=== PATIENT | male | born 1950 | race Caucasian/White ===

== ENCOUNTER 2019-04-14 10:43 | Emergency (ER) | payer MEDICARE, OTHER ==
[~2019-04-14] VITALS: Ht 175.2 cm; Wt 97.2 kg
--- NOTE | 2019-04-14 11:08 | ED GI ---
General Chief Complaint: Abdominal/GI Problems Stated Complaint: LT ABD PAIN Source of Information: Patient History of Present Illness Date Seen by Provider: Apr 14, 2019 Time Seen by Provider: 11:07 Initial Comments The patient is a 69-year-old white male who reports that he had developed left- sided abdominal pain earlier this morning. He saw his physician at [facility] and was sent here for a CT scan. He reports that yesterday he had a grumbly tummy and 4 or more loose but not watery stools. The additional stooling has not been noted today. There is been no blood in his stools. He has had no previous belly surgery. He was said to have had a temperature of 101+ at [facility] but only 100 on arrival here. Had not taken any antipyretics. Timing/Duration: 4-6 Hours Severity/Quality: Mild, Moderate Allergies and Home Medications Allergies Coded Allergies: No Known Drug Allergies (Unverified , 04/14/19) Patient Home Medication List Home Medication List Reviewed: Yes Review of Systems Review of Systems Constitutional: see HPI EENTM: No Symptoms Reported Respiratory: No Symptoms Reported Cardiovascular: No Symptoms Reported Gastrointestinal: See HPI Genitourinary: No Symptoms Reported Musculoskeletal: no symptoms reported Skin: no symptoms reported Psychiatric/Neurological: No Symptoms Reported Endocrine: No Symptoms Reported Hematologic/Lymphatic: No Symptoms Reported Past Lvheuwu-Bgsfnq-Uesbod Hx Patient Social History Alcohol Use: Denies Use Recreational Drug Use: No Smoking Status: Never a Smoker 2nd Hand Smoke Exposure: No Recent Hopitalizations: No Physical Abuse: No Sexual Abuse: No Mistreated: No Fear: No Seasonal Allergies Seasonal Allergies: No Past Medical History Surgeries: No Respiratory: No Cardiac: Yes High Cholesterol, Hypertension Neurological: No Genitourinary: No Gastrointestinal: No Musculoskeletal: No Endocrine: No HEENT: No Cancer: No Psychosocial: Yes Anxiety Integumentary: No Blood Disorders: No Physical Exam Vital Signs Vital Signs - First Documented 04/14/19 10:45 Temp 38.2 Pulse 86 Resp 22 B/P (MAP) 151/72 (98) Pulse Ox 96 O2 Delivery Room Air Capillary Refill : Height/Weight/BMI Height: '" Weight: lbs. oz. kg; BMI Method: General Appearance: mild distress HEENT: normal ENT inspection Neck: full range of motion Respiratory: chest non-tender, lungs clear, normal breath sounds, no respiratory distress, no accessory muscle use Cardiovascular: normal peripheral pulses, regular rate, rhythm, no edema, no gallop, no JVD, no murmur Gastrointestinal: other (pain to palpation from the left lower costal margin to the pelvis. 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, no motor/sensory deficits, alert, normal mood/affect, oriented x 3 Skin: normal color, warm/dry Lymphatic: no adenopathy Focused Exam Lactate Level 04/14/19 11:25: Lactic Acid Level 1.48 Lactic Acid Level Laboratory Tests Test 04/14/19 11:25 Lactic Acid Level 1.48 MMOL/L (0.50-2.00) Progress/Results/Core Measures Results/Orders Lab Results Laboratory Tests Test 04/14/19 10:54 04/14/19 11:25 04/14/19 13:00 Range/Units White Blood Count 10.8 4.3-11.0 10^3/uL Red Blood Count 4.90 4.35-5.85 10^6/uL Hemoglobin 14.9 13.3-17.7 G/DL Hematocrit 46 40-54 % Mean Corpuscular Volume 94 80-99 FL Mean Corpuscular Hemoglobin 30 25-34 PG Mean Corpuscular Hemoglobin Concent 33 32-36 G/DL Red Cell Distribution Width 12.9 10.0-14.5 % Platelet Count 159 130-400 10^3/uL Mean Platelet Volume 11.1 H 7.4-10.4 FL Neutrophils (%) (Auto) 81 H 42-75 % Lymphocytes (%) (Auto) 11 L 12-44 % Monocytes (%) (Auto) 7 0-12 % Eosinophils (%) (Auto) 0 0-10 % Basophils (%) (Auto) 0 0-10 % Neutrophils # (Auto) 8.8 H 1.8-7.8 X 10^3 Lymphocytes # (Auto) 1.2 1.0-4.0 X 10^3 Monocytes # (Auto) 0.7 0.0-1.0 X 10^3 Eosinophils # (Auto) 0.0 0.0-0.3 10^3/uL Basophils # (Auto) 0.0 0.0-0.1 10^3/uL Sodium Level 137 135-145 MMOL/L Potassium Level 4.4 3.6-5.0 MMOL/L Chloride Level 96 L 98-107 MMOL/L Carbon Dioxide Level 27 21-32 MMOL/L Anion Gap 14 5-14 MMOL/L Blood Urea Nitrogen 11 7-18 MG/DL Creatinine 1.01 0.60-1.30 MG/DL Estimat Glomerular Filtration Rate > 60 BUN/Creatinine Ratio 11 Glucose Level 117 H 70-105 MG/DL Calcium Level 9.2 8.5-10.1 MG/DL Corrected Calcium 9.0 8.5-10.1 MG/DL Total Bilirubin 0.5 0.1-1.0 MG/DL Aspartate Amino Transf (AST/SGOT) 25 5-34 U/L Alanine Aminotransferase (ALT/SGPT) 26 0-55 U/L Alkaline Phosphatase 128 40-136 U/L Total Protein 7.4 6.4-8.2 GM/DL Albumin 4.3 3.2-4.5 GM/DL Lactic Acid Level 1.48 0.50-2.00 MMOL/L My Orders Orders - PABLO JACOBS MD Cbc With Automated Diff (04/14/19 11:08) Comprehensive Metabolic Panel (04/14/19 11:08) Ua Culture If Indicated (04/14/19 11:08) Lactic Acid Analyzer (04/14/19 11:25) Ct Abdomen/Pelvis W (04/14/19 11:56) Iohexol Injection (Omnipaque 350 Mg/Ml 1 (04/14/19 12:15) Received Contrast (Hold Metformin- Contr (04/14/19 12:15) Sodium Chloride Flush (Catheter Flush Sy (04/14/19 12:15) Ns (Ivpb) (Sodium Chloride 0.9% Ivpb Bag (04/14/19 12:15) Medications Given in ED Current Medications Medications Dose Ordered Sig/Sunil Route Start Time Stop Time Status Last Admin Dose Admin Iohexol 115 ml ONCE ONCE IV 04/14/19 12:15 04/14/19 12:16 DC 04/14/19 12:25 115 ML Sodium Chloride 10 ml NEEDED PRN IV 04/14/19 12:15 04/14/19 12:26 10 ML Sodium Chloride 100 ml ONCE ONCE IV 04/14/19 12:15 04/14/19 12:16 DC 04/14/19 12:26 100 ML Vital Signs/I&O 04/14/19 10:45 Temp 38.2 Pulse 86 Resp 22 B/P (MAP) 151/72 (98) Pulse Ox 96 O2 Delivery Room Air Departure Communication (Admissions) 1328 radiology confirms the clinical diagnosis of diverticulitis. It was discussed with the patient as to the the possibility of treating this as an outpatient versus inpatient. He chose the outpatient route. Impression Primary Impression: Acute diverticulitis Disposition: HOME, SELF-CARE Condition: Stable/Unchanged Departure-Patient Inst. Decision time for Depature: 13:36 Referrals: SELF,LOLY BOCANEGRA (PCP/Family) Primary Care Physician Patient Instructions: No Instuctions Given Add. Discharge Instructions: All discharge instructions reviewed with patient and/or family. Voiced understanding. Take a clear liquid diet for at least 2 days. Basically clear liquid means anything that you can hold up to the light and see- through. Antibiotics as prescribed. If pain increases or does not jennifer go to the [facility] emergency room for admission. PABLO JACOBS MD Apr 14, 2019 11:08
[2019-04-14 11:16] LABS: WHITE BLOOD COUNT 10.8 10^3/uL (4.3-11.0)
[2019-04-14 11:17] LABS: BASOPHILS % (AUTO) 0 % (0-10); EOSINOPHILS % (AUTO) 0 % (0-10); HEMATOCRIT 46 % (40-54); HEMOGLOBIN 14.9 G/DL (13.3-17.7); LYMPHOCYTES # (AUTO) 1.2 X 10^3 (1.0-4.0); LYMPHOCYTES % (AUTO) 11 % (12-44); MEAN CORPUSCULAR HEMOGLOBIN 30 PG (25-34); MEAN CORPUSCULAR HGB CONC 33 G/DL (32-36); MEAN CORPUSCULAR VOLUME 94 FL (80-99); MEAN PLATELET VOLUME 11.1 FL (7.4-10.4); MONOCYTES # (AUTO) 0.7 X 10^3 (0.0-1.0); MONOCYTES % (AUTO) 7 % (0-12); NEUTROPHILS # (AUTO) 8.8 X 10^3 (1.8-7.8); NEUTROPHILS % (AUTO) 81 % (42-75); PLATELET COUNT 159 10^3/uL (130-400); RED CELL DISTRIBUTION WIDTH 12.9 % (10.0-14.5)
[2019-04-14 11:51] LABS: ALANINE AMINOTRANSFERASE 26 U/L (0-55); ALKALINE PHOSPHATASE 128 U/L (40-136); BILIRUBIN,TOTAL 0.5 MG/DL (0.1-1.0); BUN/CREATININE RATIO 11; CALCIUM 9.2 MG/DL (8.5-10.1); CARBON DIOXIDE 27 MMOL/L (21-32); CHLORIDE 96 MMOL/L (98-107); CREATININE SERUM 1.01 MG/DL (0.60-1.30); GFR ESTIMATED > 60; GLUCOSE 117 MG/DL (70-105); POTASSIUM 4.4 MMOL/L (3.6-5.0); SODIUM 137 MMOL/L (135-145)
[2019-04-14 11:52] LABS: ALBUMIN 4.3 GM/DL (3.2-4.5); TOTAL PROTEIN 7.4 GM/DL (6.4-8.2)
[2019-04-14] MEDS ORDERED: IOHEXOL 350 MG/ML 150 ML (OMNIPAQUE 350) VIAL IV ONE (12:15)
[2019-04-14] MEDS ORDERED: NS 100 ML (IVPB) BAG IV ONE (12:15)
[2019-04-14] MEDS ORDERED: HOLD METFORMIN - RECEIVED CONTRAST 20 ML VIAL IV SCH (12:15)
[2019-04-14] MEDS ORDERED: CATHETER FLUSH 10 ML SYR IV PRN (12:15)
--- NOTE | 2019-04-14 12:52 | Diagnostic Imaging Report ---
PROCEDURE: CT abdomen and pelvis with contrast. TECHNIQUE: Multiple contiguous axial images were obtained through the abdomen and pelvis after administration of intravenous contrast. Auto Exposure Controls were utilized during the CT exam to meet ALARA standards for radiation dose reduction. INDICATION: Left lower quadrant pain. Nausea. History of hernia repair. COMPARISON: None FINDINGS: The lung bases are clear. The heart is normal in size. There is no pericardial effusion. The liver demonstrates no focal lesions. The spleen is normal. The pancreas is normal. The adrenal glands appear normal. The kidneys are normal. There is no hydronephrosis. The bowel loops are nondistended without obstruction. There is diverticulosis of the descending and sigmoid colon, with diverticulitis at the mid descending colon. No fluid collection or free air seen. No significant free fluid is seen. No acute osseous abnormality is identified. There are degenerative changes in the spine. IMPRESSION: 1. Acute diverticulitis of the mid descending colon with no free air or fluid collection seen. Dictated by: Dictated on workstation # [id number]
[2019-04-14 13:24] LABS: CLARITY,URINE CLEAR; COLOR,URINE YELLOW; GLUCOSE, URINE (UA) NEGATIVE (NEGATIVE); PROTEIN,URINE NEGATIVE (NEGATIVE)
[2019-04-14 13:25] LABS: BILIRUBIN,URINE NEGATIVE (NEGATIVE); KETONES,URINE NEGATIVE (NEGATIVE); LEUKOCYTE ESTERASE ,URINE NEGATIVE (NEGATIVE); NITRITE,URINE NEGATIVE (NEGATIVE); SQUAMOUS EPITHELIAL CELL,UR RARE /HPF; UROBILINOGEN,URINE 0.2 MG/DL (NORMAL)
[2019-04-14] MEDS ORDERED: WATER (STERILE) FOR INJECTION 10 ML ONE (14:17)
[2019-04-14] MEDS ORDERED: cefTRIAXone 1,000 MG IV (ROCEPHIN) VIAL ONE (14:17)
[2019-04-14] MEDS ORDERED: ACETAMINOPHEN 500 MG TAB (TYLENOL) ONE (14:18)
[2019-04-14] MEDS ORDERED: ACETAMINOPHEN 500 MG TAB (TYLENOL) PO ONE (14:30)
[2019-04-14] MEDS ORDERED: cefTRIAXone FOR IV USE 1,000 MG in WATER (STERILE) FOR INJECTION 10 ML IV ONE (14:30)
--- NOTE | 2019-04-14 14:30 | NUR ---
decided to give patient 500mg of tylenol, because patient was feeling warm. Took temp and it read 100.3 Dr. Caldwell was notified and ordered another 500mg of tylenol and 1g of rocephin to be given before discharging.
[2019-04-14 15:05] VITALS: BP 135/77
== END 2019-04-14 15:05 | disposition home or self-care (01) ==
LOC: EDUNIT# 10:43 → ER FS 10:46
DX: K57.92 Diverticulitis of intestine, part unspecified, without perforation or abscess without bleeding (principal); I10 Essential (primary) hypertension; E78.00 Pure hypercholesterolemia, unspecified; F41.9 Anxiety disorder, unspecified
CPT/HCPCS: 36415; 74177; 80053; 81000; 83605; 85025; 96365

== ENCOUNTER → 2021-07-18 | Outpatient (CLI) | payer MEDICARE, OTHER ==
--- NOTE | 2021-07-18 13:24 | Diagnostic Imaging Report ---
INDICATION: Neck pain and injury. TIME OF EXAM: 11:54 AM 3 views cervical spine were obtained. FINDINGS: There is straightening of the normal cervical lordotic curvature. There appears to be degenerative retrolisthesis of C5 on C6. There is severe degenerative disc disease C5-C6 and C6-C7 levels where there is complete loss of the disc space height. No fractures are seen. Prevertebral tissues are normal. Odontoid is intact. IMPRESSION: Severe lower cervical spondylosis. No acute bony abnormality is detected. Dictated by: Dictated on workstation # [id number]
== END ==
LOC: RAD FS 11:32
PROVIDERS: ATTEND Family Medicine
DX: M47.812 Spondylosis without myelopathy or radiculopathy, cervical region (principal)
CPT/HCPCS: 72040